=== PATIENT | male | born 1980 | race Caucasian/White ===

== ENCOUNTER 2020-12-27 12:21 | Emergency (ER) | payer OTHER ==
[2020-12-27 14:38] LABS: BASOPHIL 0.6 % (0-2); EOSINOPHIL 7.2 % (0-5); HCT 43.1 % (42.0-52.0); HGB 13.9 g/dl (13.2-18.0); LYMPHOCYTE 18.2 % (15-48); MCH 29.2 pg (25.0-31.0); MCHC 32.3 g/dL (32.0-36.0); MCV 90.5 fL (78.0-100.0); MONOCYTE 4.8 % (0-12); MPV 10.2 fL (6.0-9.5); NEUTROPHIL 68.5 % (41-80); NRBC 0; PLT 197 K/uL (150-400); RBC 4.76 M/uL (4.70-6.00); RDW 16.3 % (11.5-14.0); WBC 12.3 K/uL (4.0-10.5)
[2020-12-27 14:56] LABS: ALBUMIN 3.5 g/dL (3.4-5.0); BILIRUBIN - TOTAL 0.3 mg/dL (0.2-1.0); BUN/CREAT RATIO (CALC) 14.3 RATIO; CREATININE 0.56 mg/dL (0.67-1.17); GLOBULIN (CALCULATION) 4.4 g/dL; POTASSIUM 3.6 mmol/L (3.5-5.1); TOTAL PROTEIN 7.9 g/dL (6.4-8.2)
[2020-12-27] MEDS ORDERED: VENTOLIN HFA IN18 GM INH (16:45)
[2020-12-27] MEDS ORDERED: MEDROL 4MG DOSEP4 MG PO (16:45)
[2020-12-27] MEDS ORDERED: ZPAK PO (16:45)
== END 2020-12-27 17:33 | disposition home or self-care (01) ==
LOC: FER 12:21
PROVIDERS: Nurse Practitioner Family
DX: U07.1 COVID-19 (principal); I10 Essential (primary) hypertension; Z90.49 Acquired absence of other specified parts of digestive tract; Z88.0 Allergy status to penicillin; Z88.8 Allergy status to other drugs, medicaments and biological substances
CPT/HCPCS: 36415; 71045; 80053; 85025; J7030